=== PATIENT | male | born 1980 | race Two or more races ===

== ENCOUNTER 2019-10-14 18:04 | Emergency (ER) | payer BC, OTHER ==
[~2019-10-14] VITALS: Ht 167.6 cm; Wt 111.3 kg
--- NOTE | 2019-10-14 20:21 | NUR ---
Assumed care of patient. C/O nasal congestion, SOB, and mild cough x 1 week. Hypertensive in ED. States he used to take antihypertensives, but stopped just over a year ago. He states that he stopped taking his meds because he was drinking a lot and "not makign good choices". No EtOH x1 week. Hx cocaine use, last use in 03/2019. NAD. Will continue to monitor.
--- NOTE | 2019-10-14 21:28 | NUR ---
Clonidine admin. Xray at bedside.
[2019-10-14 21:41] LABS: BASOPHILS # (AUTO) 0.02 x10^3/uL (0-0.1); BASOPHILS % (AUTO) 0 % (0-1); EOSINOPHILS # (AUTO) 0.16 x10^3/uL (0-0.4); EOSINOPHILS % (AUTO) 2 % (1-7); LYMPHOCYTES # (AUTO) 2.67 x10^3/uL (1-3.4); LYMPHOCYTES % (AUTO) 31 % (22-44); MD NO; MEAN CORPUSCULAR HEMOGLOBIN 30.1 pg (27.5-34.5); MEAN CORPUSCULAR HGB CONC 33.9 g/dL (33.2-36.2); MEAN CORPUSCULAR VOLUME 88.6 fL (81-97); MEAN PLATELET VOLUME 8.9 fL (7.4-10.4); MONOCYTES # (AUTO) 0.47 x10^3/uL (0.2-0.8); MONOCYTES % (AUTO) 6 % (2-9); NEUTROPHILS # (AUTO) 5.18 x10^3/uL (1.8-6.8); NEUTROPHILS % (AUTO) 61 % (42-75); PLATELET COUNT 227 x10^3/uL (130-400); RED BLOOD COUNT 5.01 x10^6/uL (4.38-5.82)
[2019-10-14 21:45] LABS: ALBUMIN 3.2 g/dL (3.4-5.0); ANION GAP 7 mmol/L (5-15); CALCIUM 8.2 mg/dL (8.5-10.1); CHLORIDE 106 mmol/L (98-107)
[2019-10-14 21:46] LABS: CREATININE 1.05 mg/dL (0.7-1.3)
[2019-10-14 22:33] VITALS: BP 178/117
== END 2019-10-15 00:50 | disposition home or self-care (01) ==
LOC: ED 10-15 00:10
DX: J06.9 Acute upper respiratory infection, unspecified (principal); I10 Essential (primary) hypertension
CPT/HCPCS: 36415; 71046; 80048; 82040; 85025; 93005; 99285